=== PATIENT | female | born 1950 | race American Indian/Alaskan Native ===

== ENCOUNTER 2020-11-18 16:50 | Emergency (ER) | payer MEDICARE ==
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
[2020-11-18 18:11] LABS: Basophils % (Auto) 0.4 % (0.0-1.8); Eosinophils % (Auto) 0.2 % (0.0-4.3); Hematocrit 38.7 % (30.3-42.9); Hemoglobin 12.7 gm/dl (10.1-14.3); Lymphocytes # (Auto) 1.8 K/mm3 (1.2-5.4); Lymphocytes % (Auto) 18.4 % (13.4-35.0); Mean Corpuscular HGB Conc 33 % (30-34); Mean Corpuscular Volume 87 fl (79-97); Monocytes # (Auto) 0.8 K/mm3 (0.0-0.8); Monocytes % (Auto) 7.9 % (0.0-7.3); Platelet Count 258 K/mm3 (140-440); Red Blood Count 4.43 M/mm3 (3.65-5.03); Red Cell Distribution Width 15.5 % (13.2-15.2)
[2020-11-18 18:19] LABS: Blood Urea Nitrogen 11 mg/dL (7-17); Calcium 9.6 mg/dL (8.4-10.2); Hemolysis Index 3
[2020-11-18 18:25] LABS: BUN/Creatinine Ratio 16
[2020-11-18 18:45] LABS: Alanine Aminotransferase 30 units/L (7-56); Albumin 4.2 g/dL (3.9-5)
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
[2020-11-19 07:35] VITALS: BP 158/68
[2020-11-19] MEDS ORDERED: KETOROLAC 30 MG/1 ML INJ IV ONE (08:57)
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
[2020-11-19] MEDS ORDERED: KETOROLAC 30 MG/1 ML INJ ONE (11:52)
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
--- NOTE | 2020-11-20 17:17 | Electrocardiograph Report ---
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
== END 2020-11-19 14:20 | disposition home or self-care (01) ==
LOC: ED 16:50
DX: S52.532A Colles' fracture of left radius, initial encounter for closed fracture (principal); S20.212A Contusion of left front wall of thorax, initial encounter; S80.02XA Contusion of left knee, initial encounter; S80.01XA Contusion of right knee, initial encounter; R10.12 Left upper quadrant pain; I10 Essential (primary) hypertension; R51.9 Headache, unspecified; E11.9 Type 2 diabetes mellitus without complications; Z86.69 Personal history of other diseases of the nervous system and sense organs; Z88.0 Allergy status to penicillin; Z88.1 Allergy status to other antibiotic agents; Z79.899 Other long term (current) drug therapy; V89.2XXA Person injured in unspecified motor-vehicle accident, traffic, initial encounter; Y93.89 Activity, other specified; Y92.488 Other paved roadways as the place of occurrence of the external cause; Y99.8 Other external cause status
CPT/HCPCS: 29125; 36415; 70450; 71046; 71260; 73110; 73562; 74177; 80053; 83690; 84484; 85025; 93005; 96374; 99285; J1885; Q9967; 99284